=== PATIENT | male | born 1955 | race Caucasian/White ===

== ENCOUNTER 2019-04-14 10:17 | Emergency (ER) | payer MEDICARE ==
[~2019-04-14] VITALS: Ht 180.3 cm; Wt 64.0 kg
[~2019-04-14 10:17] MED LIST: ADVIL200 MG PO; AMITRIPTYLINE H50 MG PO; SIMVASTATIN20 MG PO; TRAZODONE HCL50 MG PO; TYLENOL EXTRA500 MG PO
== END 2019-04-14 14:15 | disposition short-term general hospital (02) ==
LOC: ED 10:17
DX: K12.2 Cellulitis and abscess of mouth (principal); Z87.891 Personal history of nicotine dependence; Z79.899 Other long term (current) drug therapy
CPT/HCPCS: 70491; 80053; 83605; 85025; 96361; 99285-25; J1100; J1885; J2543; J7030; Q9967

== ENCOUNTER 2021-11-08 10:20 | Day surgery (SDC) | payer MEDICARE ==
[~2021-11-08] VITALS: Ht 177.8 cm; Wt 72.7 kg
[~2021-11-08 10:20] MED LIST changes: +CALCIUM500 MG PO; +CARBOPLATIN150 MG IV; +CHLORHEXIDINE473 ML MM; +DORZOLAMIDE-TIM10 ML OPTH; +DURAGESIC1 EAC4 TD; +HYDROCODONE CO120 ML PO; +HYDROCODONE-AC118 M1 PO; +PACLITAXEL6 MG/1 ML IV; +TRAZODONE HCL150 MG PO; +VITAMIN D350 MCG PO
--- NOTE | 2021-11-08 11:44 | NUR ---
1130 called to cancer clinic to check if pre abx needed due to r knee replacement.
--- NOTE | 2021-11-08 12:13 | NUR ---
11/08/21 1213 Kat Nelson 1208 PATIENT ARRIVES TO PACU AWAKE. REPOSITIONS SELF TO BACK FROM STOMACH. RESP EVEN AND UNLABORED, ROOM AIR SATS 100%. PATIENT DENIES NAUSEA. C/O " A LITTLE BIT OF PAIN, 6/10" DENIES TYLENOL.
--- NOTE | 2021-11-10 15:35 | PATH ---
[facility] [address], [place] [address] Signed SPECIMEN(S): A BONE MARROW - CORE SPECIMEN(S): B BONE MARROW - ASPIRATION SPECIMEN(S): C FLOW CYTOMETRY IN BM EDTA CLINICAL HISTORY: Bone marrow biopsy. Chronic neutropenia and macrocytosis. Evaluate MDS and/or Fanconi anemia or dyskeratosis congenita. See attached. D70.9 (neutropenia, unspecified) DIAGNOSIS SUMMARY: Peripheral blood - Macrocytosis. - Absolute neutrophil count: 1.6 K/uL. - Negative for morphologic abnormalities. Bone marrow aspirate smears, clot section/cell block and trephine biopsy: - Slightly hypocellular bone marrow with trilineage progressive hematopoiesis and mild dyserythropoiesis. - Negative for morphologic features of myeloproliferative neoplasm. - Negative for increase in plasma cells or infiltrative bone marrow processes. - Please see Diagnostic Comment. DIAGNOSTIC COMMENT: Clinical history of macrocytosis and neutropenia is noted. The current study demonstrates macrocytosis. However, no neutropenia is present. Morphologic evaluation of the bone marrow is significant for slight hypocellularity and minimal dyserythropoiesis. Correlation with pending MDS FISH panel and cytogenetics will be helpful for further assessment of myelodysplastic syndrome (MDS). Clinical concern for dyskeratosis congenita is noted and morphology is not supportive for that diagnosis. There are no morphologic features suggestive of the latter. Molecular panel for NeoTYPE heme molecular profile (to include studies requested by physician) is pending and will be reported in an addendum. This case is reviewed and dictated by Dixon Camejo MD. A board-certified hematopathologist. NA:clm:C2NR PERIPHERAL BLOOD: HEMOGRAM ([facility], 11/08/2021): WBC 2.5 K/uL, RBC 4.19 M/uL, HGB 15.2 g/dL, HCT 44.0%, MCV 105.2 fL, MCH 36.3 pg, MCHC 34.5 g/dL, RDW 12.7%, PLT 157 K/uL. PATIENT NAME: LENORA ZUNIGA PATHOLOGY DATE OF : 55 REPORT #: [id number] PHYSICIAN: [facility] PCP: JOSE SANTILLAN MD REPORT IS CONFIDENTIAL AND NOT TO BE RELEASED WITHOUT AUTHORIZATION [facility] [address], [place] [address] Signed DIFFERENTIAL (manual): 62% neutrophils, 28% lymphocytes, 9% monocytes, 1% eosinophils. Review of the peripheral blood smear and CBC data demonstrates that the RBCs are normal in number and are normocytic and normochromic with no anemia present. No rouleaux formation identified. No nucleated RBCs are encountered. The WBCs are decreased in number with normal distribution. No neutropenia is present (absolute neutrophil count is 1.6 K/uL). The neutrophils show unremarkable morphology. The lymphocytes show a spectrum of reactive morphology. No immature cells/blasts are identified. The platelets are normal in number and unremarkable in morphology. BONE MARROW: BONE MARROW ASPIRATE SMEARS: The bone marrow aspirate smears are adequately cellular for evaluation. Trilineage hematopoiesis is present with progressive ordinary maturation. There is no increase in blasts noted. The M:E ratio appears normal. Minimal dyserythropoiesis is noted, characterized by nuclear budding and binucleation. The megakaryocytes are scattered and appear normal in number and distribution. BONE MARROW DIFFERENTIAL: 2% blasts, 3% promyelocytes, 12% myelocytes, 32% segmented neutrophils, 11% lymphocytes, 4% monocytes, 4% eosinophils, 2% plasma cells, and 35% erythroid. BONE MARROW CORE BIOPSY AND CLOT SECTION CELL BLOCK: The bone marrow core biopsy demonstrates slightly hypocellular bone marrow for age with an average cellularity of 25%. Trilineage hematopoiesis is present with morphologic characteristics as described above. There are no lymphoid aggregates, granulomas, or metastatic tumor cells present. The megakaryocytes are scattered and appear normal in number and distribution. The cell block shows similar findings. SPECIAL STAINS (performed with appropriate reactive controls): - Iron (aspirate smear): Increased storage iron; negative for ring sideroblasts. - Iron (block B1): Storage iron present; negative for ring sideroblasts. - Reticulin (block A1): Mild increase in bone marrow reticulin fibrosis (MF-1). IMMUNOHISTOCHEMICAL STAINS (performed on block A1 with appropriate reactive controls and show the following results): - CD34: Highlights scattered positive cells with no increase in blasts noted. - CD117: Highlights scattered positive cells with no increase in blasts PATIENT NAME: LENORA ZUNIGA PATHOLOGY DATE OF : 55 REPORT #: [id number] PHYSICIAN: CELESTINA PATHOLOGY PCP: JOSE SANTILLAN MD REPORT IS CONFIDENTIAL AND NOT TO BE RELEASED WITHOUT AUTHORIZATION [facility] [address] [place] [id number] Signed noted. - CD71: Highlights erythroid precursors. - MPO: Highlights myeloid precursors. - Factor VIII: Highlights megakaryocytes. - E-cadherin: Highlights early erythroid precursors. NA:clm FLOW CYTOMETRY: Bone marrow aspirate, flow cytometry: - No increase in blasts (0.7% myeloblasts). - Normal myeloid maturation. - No atypical lymphoid cell population. - See comment. COMMENT: While no hematopoietic abnormality is detected in this study, correlation with clinical, morphologic, and genetic findings is recommended for full interpretation and to assess for disease processes not fully examined by flow cytometry analysis, including myelodysplastic syndrome and myeloproliferative neoplasm. FLOW CYTOMETRY ANALYSIS: FLOW DIFFERENTIAL (% Total CD45 vs. SSC gating): Myeloid 83%; Lymphoid 7%; Monocyte 3%; Dim CD45/Blast: 0.7%. Cell Count: 6.6 x 10*3/uL. POPULATION ANALYSIS: BLASTS: Analysis of the dim CD45 gate demonstrates 0.7% myeloblasts by CD34/CD117. 1.0% of total events are hematogones. LYMPHOID CELLS: The lymphocyte gate comprises 7% of total events and includes 68% T-cells with a CD4:CD8 ratio of 1.3:1 and normal holt T-cell antigen expression. 14% of lymphocytes are polyclonal B-cells with a kappa:lambda ratio of 1.6:1. The remainders are NK-cells. MYELOID CELLS: The myeloid population comprises 83% of the total events. No aberrant immunophenotypic expression is detected. MONOCYTES: The monocyte population comprises 3% of the total events. Monocytes are not increased. No aberrant immunophenotypic expression is detected. PLASMA CELLS: 0.3% plasma cells are detected in the screening gate neg-dimCD45/CD38. Plasma cells are CD45 dim and positive for CD19. ANTIBODIES USED: KAPPA, LAMBDA, CD20, CD10, CD19, CD23, CD38, CD16, CD56, CD8, CD5, CD2, CD4, CD7, CD3, CD14, CD33, CD13, HLADR, CD34, CD117, CD15, CD45: TOTAL ANTIBODIES USED: 23. DKW FINAL DIAGNOSIS PERFORMED BY: Dixon Camejo MD, FACP, Nov 09 2021 2:04PM PATIENT NAME: LENORA ZUNIGA PATHOLOGY DATE OF : 55 REPORT #: [id number] PHYSICIAN: CELESTINA PATHOLOGY PCP: JOSE SANTILLAN MD REPORT IS CONFIDENTIAL AND NOT TO BE RELEASED WITHOUT AUTHORIZATION [facility] [address], [place] [address] Signed CYTOGENETICS: Pending, to be reported in an addendum. FISH ANALYSIS: Pending, to be reported in an addendum. MOLECULAR / PCR: Pending, to be reported in an addendum. GROSS DESCRIPTION: Two specimens are received in two containers, labeled "NH." A. The specimen, labeled "NH, bone marrow core biopsy," is received in formalin and consists of two pink-butterfield, needle core, bone tissue fragments that measure 0.6 cm in length and 0.1 cm in diameter each. Specimen is left for decalcification in Immunocal prior to processing. Specimen is entirely submitted in cassette (A1). B. The specimen, labeled "NH, bone marrow clot," is received in formalin and consists of coagulated blood that measures 1.5 x 0.6 x 0.6 cm. Specimen is entirely submitted in cassette (B1). JS (under the direct supervision of a pathologist) The Gross Description was prepared using a voice recognition system. The report was reviewed for accuracy; however, sound-alike word errors, addition and/or deletions may occur. If there is any question about this report, please contact Client Services. ADDITIONAL NOTES: Immunohistochemical and/or in situ hybridization studies were performed on this case with the appropriate positive controls that react as expected. This test was developed and its performance characteristics determined by [facility]. It has not been cleared or approved by the U.S. Food and Drug Administration. The FDA has determined that such clearance or approval is not necessary. This test is used for clinical purposes. It should not be regarded as investigational or for research. [facility] is certified under the Clinical Laboratory Improvement Amendments of 1988 (CLIA) as qualified to perform high complexity clinical laboratory testing. This assay has not been validated for specimens that have been decalcified. In this case, certain antibodies were performed by both immunohistochemistry and flow cytometry analysis because flow cytometry analysis did not fully explain all the light microscopic findings. PATIENT NAME: LENORA ZUNIGA PATHOLOGY DATE OF : 55 REPORT #: [id number] PHYSICIAN: CELESTINA NAIDU PCP: JOSE SANTILLAN MD REPORT IS CONFIDENTIAL AND NOT TO BE RELEASED WITHOUT AUTHORIZATION [address] [address] Signed Immunohistochemistry aided in the analysis. Both methods are deemed medically necessary in this case. This test was developed and its performance characteristics determined by [facility]. It has not been cleared or approved by the US Food and Drug Administration. The FDA does not require this test to go through premarket FDA review. This test is used for clinical purposes. It should not be regarded as investigational or for research. This laboratory is certified under the Clinical Laboratory Improvement Amendments (CLIA) as qualified to perform high complexity clinical laboratory testing. PERFORMING LABORATORY: The technical component of flow cytometry was performed by [facility], [address] [place] [address] (CLIA#: [id number]). Professional interpretation was performed by [facility], [facility], [address] [place] [address] (CLIA#: [id number]) The technical component was performed by [facility], [address] [place] [id number] (CLIA# [id number]). Professional interpretation was performed by [facility], [facility], [address] [place] [address] (CLIA#: [id number]). IMAGES: [id number]: [id number]: [id number] Diagnostician: Robbi Perdue MD Pathologist Electronically Signed 11/10/2021 Copies: ~ PATIENT NAME: LENORA ZUNIGA PATHOLOGY DATE OF : 55 REPORT #: [id number] PHYSICIAN: CELESTINA PATHOLOGY PCP: JOSE SANTILLAN MD REPORT IS CONFIDENTIAL AND NOT TO BE RELEASED WITHOUT AUTHORIZATION
== END 2021-11-08 12:35 | disposition home or self-care (01) ==
LOC: OPS 10:20 → DS 10:20 → OPS 12:00
PROVIDERS: ATTEND Specialist
PROC: 07JT3ZZ Inspection of Bone Marrow, Percutaneous Approach (ICD-10-PCS; principal; 2021-11-08 12:00)
DX: D75.89 Other specified diseases of blood and blood-forming organs (principal); E78.5 Hyperlipidemia, unspecified; M81.0 Age-related osteoporosis without current pathological fracture; Z96.651 Presence of right artificial knee joint; Z87.891 Personal history of nicotine dependence; D70.9 Neutropenia, unspecified
CPT/HCPCS: 00520; 82525; 85025; 85060; J2001; J2704